=== PATIENT | female | born 1975 | race Caucasian/White ===

== ENCOUNTER → 2024-09-13 08:41 | Outpatient (REF) | payer OTHER, SELFPAY | LOC: HWWDC 08:41 | PROVIDERS: ATTENDING PHYSICIAN Nurse Practitioner Family; FAMILY PHYSICIAN Family Medicine | DX: Z12.31 Encounter for screening mammogram for malignant neoplasm of breast (principal) | CPT/HCPCS: 77063; 77067 ==

== ENCOUNTER → 2025-05-08 09:19 | Outpatient (REF) | payer OTHER, SELFPAY | LOC: HWRAD 09:19 | PROVIDERS: ATTENDING PHYSICIAN Obstetrics & Gynecology; FAMILY PHYSICIAN Physician Assistant Medical | DX: N85.2 Hypertrophy of uterus (principal) | CPT/HCPCS: 76830; 76856 ==